=== PATIENT | female | born 1975 | race Caucasian/White ===

== ENCOUNTER 2017-05-16 13:31 | Emergency (ER) | payer OTHER ==
[~2017-05-16] VITALS: Ht 162.6 cm; Wt 58.1 kg
[2017-05-16] MEDS ORDERED: FLEXERIL10 MG PO (15:46)
[2017-05-16] MEDS ORDERED: MOTRIN600 MG PO (15:46)
[2017-05-16 16:04] VITALS: BP 110/58
== END 2017-05-16 16:04 | disposition home or self-care (01) ==
LOC: EME 13:31
DX: S13.4XXA Sprain of ligaments of cervical spine, initial encounter (principal); W20.8XXA Other cause of strike by thrown, projected or falling object, initial encounter; Y99.0 Civilian activity done for income or pay; Z88.5 Allergy status to narcotic agent
CPT/HCPCS: 72040; 99281; 99284